=== PATIENT | male | born 1980 | race Caucasian/White ===

== ENCOUNTER 2024-10-15 11:19 | Emergency (ER) | payer OTHER ==
[~2024-10-15] VITALS: Ht 182.9 cm; Wt 86.2 kg
[2024-10-15] MEDS ORDERED: SODIUM CHLORIDE 0.9% 1,000 ML IV ONE (12:30)
[2024-10-15] MEDS ORDERED: ondansetron HCL 4 MG/2 ML VIAL IV ONE (12:30)
[2024-10-15 13:06] LABS: BASOPHILS 0.5 % (0-2); EOSINOPHILS 6.9 % (0-6); HEMATOCRIT 46.1 % (35.0-50.0); HEMOGLOBIN 15.4 g/dL (12.0-18.0); LYMPHOCYTES 13.5 % (24-44); MCH 28.4 (27-36); MCHC 33.4 g/dl (30-36); MONOCYTES 6.6 % (0-12); NEUTROPHILS 72.5 % (39-80); PLATELET COUNT 308 K/uL (140-440); RBC 5.43 M/ul (4.3-5.7); RDW 14.2 (10.5-15.0)
[2024-10-15 13:21] LABS: ALBUMIN 3.6 g/dL (3.4-5.0); ALBUMIN/GLOBULIN RATIO 0.8 (1.1-2.4); ANION GAP 13.9 (7-21); BILIRUBIN, TOTAL 0.3 ng/dL (0.2-1.0); BUN/CREATININE RATIO 13.74 (6.0-28.6); CALCIUM 9.1 mg/dL (8.5-10.1); CREATININE, SERUM 1.31 mg/dL (0.70-1.30); POTASSIUM 3.9 mmol/L (3.5-5.1); PROTEIN, TOTAL 8.1 g/dL (6.4-8.2)
[2024-10-15] MEDS ORDERED: droPERidol 5 MG/2 ML VIAL IV ONE (14:00)
[2024-10-15] MEDS ORDERED: ONDANSETRON 4 MG HOME.PACK SL ONE (15:45)
[2024-10-15] MEDS ORDERED: DIPHENOXYLATE/ATROPINE 1 EA TAB PO ONE (15:45)
[2024-10-15 15:59] VITALS: BP 115/89
== END 2024-10-15 15:59 | disposition home or self-care (01) ==
LOC: ED 11:19
PROVIDERS: Emergency Medicine
DX: R10.12 Left upper quadrant pain (principal); R11.2 Nausea with vomiting, unspecified; R19.7 Diarrhea, unspecified
CPT/HCPCS: 36415; 80053; 83690; 85025; 96361; 96374; 96375; 99284-25; A9270; J1790; J2405; J7030

== ENCOUNTER 2024-10-29 18:21 | Emergency (ER) | payer MEDICAID ==
[~2024-10-29] VITALS: Ht 182.9 cm; Wt 84.4 kg
--- OUTSIDE RECORDS SUMMARY | 2024-10-29 18:28 | XMS ---
PreManage Notification: ERMELINDA VILLAR Security Manager Entry Events No recent Security Events currently on file CRITERIA MET - [facility] - 2 Visits in 30 Days CARE PROVIDERS MAGAN VASQUES Dentist: Contract Designer Current PHONE: [phone] Yinka has no Care Guidelines for this patient. EGigi VISIT COUNT (12 MO.) [address] [place] [id number] Baldev Mackey TOTAL 3 NOTE: Visits indicate total known visits. ED/UCC VISIT TRACKING (12 MO.) 10/29/2024 18:21 MEGAN Fuchs TYPE: Emergency COMPLAINT: - EAR PAIN 10/15/2024 11:20 MEGAN Fuchs TYPE: Emergency COMPLAINT: - VOMITING DIAGNOSES: - Diarrhea, unspecified - Left upper quadrant pain - Nausea - Nausea with vomiting, unspecified 05/30/2024 19:21 [facility] Narendra ALICEA TYPE: Emergency DIAGNOSES: - Diarrhea, unspecified - Nausea with vomiting, unspecified - Unspecified abdominal pain INPATIENT VISIT TRACKING (12 MO.) No inpatient visits to display in this time frame [email or web address]
[2024-10-29] MEDS ORDERED: AMOX TR-K CLV1 EAC1 PO (19:34)
[2024-10-29] MEDS ORDERED: AMOXICILLIN/CLAVULANATE K 875 MG HOME.PACK PO ONE (19:45)
[2024-10-29] MEDS ORDERED: IBUPROFEN 600 MG TAB PO ONE (19:45)
[2024-10-29 19:52] VITALS: BP 147/82
== END 2024-10-29 19:53 | disposition home or self-care (01) ==
LOC: ED 18:21
DX: H66.92 Otitis media, unspecified, left ear (principal)
CPT/HCPCS: 99282; A9270